=== PATIENT | male | born 1965 | race Hispanic/Latino ===

== ENCOUNTER 2019-06-23 00:31 | Observation (INO) | payer OTHER ==
[~2019-06-23] VITALS: Ht 165.1 cm; Wt 79.3 kg
[2019-06-23 00:58] LABS: BASOPHILS % (AUTO) 0.5 % (0.0-5.0); EOSINOPHILS % (AUTO) 1.9 % (0.0-8.0); HEMATOCRIT 45.8 % (42-54); MEAN CORPUSCULAR HEMOGLOBIN 28.9 pg (27.0-33.0); MEAN CORPUSCULAR VOLUME 87.6 fL (79-99); MONOCYTES % (AUTO) 8.6 % (3.0-13.0); NEUTROPHILS % (AUTO) 68.6 % (40.0-77.0); PLATELET COUNT (AUTO) 251 K/uL (130-400); RED BLOOD CELL COUNT(AUTO) 5.23 MIL/uL (4.50-6.20); RED CELL DISTRIBUTION WIDTH 13.2 % (11.0-15.5); WHITE BLOOD COUNT (AUTO) 14.3 K/uL (4.8-10.8)
[2019-06-23] MEDS ORDERED: ASPIRIN 325 MG TABLET ONE (01:05)
[2019-06-23 01:11] LABS: POTASSIUM 3.3 mmol/L (3.5-5.1)
[2019-06-23 01:15] LABS: INR 0.96 (0.85-1.15); PARTIAL THROMBOPLASTIN TIME 26.3 SEC (26.3-35.5); PROTHROMBIN TIME 10.1 SEC (9.6-11.6)
[2019-06-23 01:20] LABS: ALBUMIN 4.1 g/dL (3.5-5.0); BILIRUBIN,TOTAL 0.2 mg/dL (0.2-1.0); TOTAL PROTEIN, SERUM 7.2 g/dL (6.0-8.3)
[2019-06-23] MEDS ORDERED: ACETAMINOPHEN EXTRA STRENGTH 500 MG TABLET ONE ×2 (01:54→01:58)
[2019-06-23] MEDS ORDERED: NITROGLYCERIN 1GM/1 INCH PACKET TD ONE ×2 (01:54→01:58)
[2019-06-23] MEDS ORDERED: NITROGLYCERIN 1GM/1 INCH PACKET TD SCH (04:00)
[2019-06-23] MEDS ORDERED: HYDRALAZINE HCL 20 MG/ML VIAL IV PRN (04:00)
[2019-06-23] MEDS ORDERED: LIDOCAINE HCL-MPF 1% 2ML VIAL IV PRN (04:00)
[2019-06-23] MEDS ORDERED: POTASSIUM CHLORIDE 10MEQ/100ML 100 ML IV PRN (04:00)
[2019-06-23] MEDS ORDERED: POTASSIUM CHLORIDE 20 MEQ ERTAB PO PRN (04:00)
[2019-06-23] MEDS ORDERED: LACTULOSE 20 GM/30 ML UDCUP PO PRN (04:00)
[2019-06-23] MEDS ORDERED: ONDANSETRON HCL 4 MG/2 ML VIAL IV PRN (04:00)
[2019-06-23] MEDS ORDERED: ACETAMINOPHEN 325 MG TAB PO PRN ×2 (04:00)
[2019-06-23] MEDS ORDERED: POTASSIUM CHLORIDE 10% ELIXIR 20 MEQ/15 ML UDCUP PO PRN (04:00)
[2019-06-23 04:23] LABS: CHOLESTEROL 147 mg/dL (<200); HDL CHOLESTEROL 112 mg/dL (29-71); LDL DIRECT 86 mg/dL (0-99); TRIGLYCERIDES 174 mg/dL (30-200)
--- NOTE | 2019-06-23 06:48 | NUR ---
ER ADMIT PATIENT RECEIVED FROM ER IN STABLE CONDITION. ORIENTED TO ROOM AND USE OF CALL LIGHT. DENIES PAIN OR SHORTNESS OF BREATH. V/S ARE STABLE. WILL CONTINUE TO MONITOR.
[2019-06-23 07:08] VITALS: BP 110/75
[2019-06-23 08:00] VITALS: BP 114/65
[2019-06-23] MEDS ORDERED: FAMOTIDINE 20MG TAB 20 MG TAB PO SCH (09:00)
[2019-06-23] MEDS ORDERED: ENOXAPARIN SODIUM 40 MG/0.4 ML SYRINGE SQ SCH (09:00)
[2019-06-23] MEDS ORDERED: ASPIRIN 325 MG TABLET PO SCH (09:00)
[2019-06-23] MEDS ORDERED: METOPROLOL TARTRATE 25 MG TAB PO SCH (09:00)
[2019-06-23 11:32] VITALS: BP 110/63
--- NOTE | 2019-06-23 11:49 | NUR ---
INSTRUCTIONS DISCHARGE INSTRUCTIONS GIVEN TO PATIENT USING TEACH BACK. NO NEW PRESCRIPTIONS. WILL F/U WITH PRIMARY MD NEEDED. IV REMOVED WITH TIP INTACT. NO BLEEDING NOTED, SITE COVERED WITH GAUZE AND SECURED WITH TAPE. NO QUESTIONS OR CONCERNS VOICED.
[2019-06-23] MEDS ORDERED: ATORVASTATIN CALCIUM 20 MG TABLET PO SCH (21:00)
== END 2019-06-23 12:53 | disposition home or self-care (01) ==
LOC: EDH 00:31 → EDHIP 00:32 → 3CH 06:13
PROVIDERS: ADMIT Family Medicine; ATTEND Family Medicine
DX: R07.89 Other chest pain (principal); I10 Essential (primary) hypertension; E78.5 Hyperlipidemia, unspecified; G47.30 Sleep apnea, unspecified; E87.6 Hypokalemia; F17.210 Nicotine dependence, cigarettes, uncomplicated; Z99.89 Dependence on other enabling machines and devices; Z90.89 Acquired absence of other organs; Z79.899 Other long term (current) drug therapy; Z88.8 Allergy status to other drugs, medicaments and biological substances
CPT/HCPCS: 36415; 71045; 80053; 80061; 82550; 83880; 84484 ×2; 85025; 85610; 85730; 93005; 96372; 99284; G0378 ×9; J1650